=== PATIENT | female | born 1985 | race Caucasian/White ===

== ENCOUNTER 2016-12-26 16:26 | Emergency (ER) | payer OTHER ==
--- NOTE | ~2016-12-26 | CR72 ---
[facility] A Service of [facility] RADIOLOGY TEXT RESULTS PATIENT: DANUTA JEAN LOCATION: [facility] : 85 UNIT #: [id number] AGE: [address]: Cameron Lala MD SEX: F ORDER DR: [id number] [facility] [address] [place], [place] [address] [id number] E MR#: [id number] Acc #: [id number] NAME: DANUTA JEAN : 1985 SEX: F STUDY DATE/TIME: 12/26/2016 16:46 UNIT: [facility] ROOM: STUDY DESCRIPTION: CR Chest Single View Portable Attending Physician: Cameron Lala M.D. Ordering Physician: Cameron Lala M.D. Primary Care Physician: Ally Shah M.D. MEDICAL IMAGING REPORT This report is preliminary unless electronic signature is present EXAM Portable chest HISTORY 31-year-old female, shortness of air, palpitations x1 week. FINDINGS AP portable view of the chest demonstrates mild elevation of the right hemidiaphragm. There is also mild lateralization of the dome of the diaphragm, could represent a small subpulmonic effusion. Both lungs are clear. Heart and mediastinum unremarkable. Osseous structures appear normal. Dictated by... Declan Wells M.D. THIS IS AN ELECTRONICALLY VERIFIED REPORT Declan Wells M.D. at 12/27/2016 1:06 PM MAGNUS/miller TD: 12/26/2016 19:56 JOB #: [id number] MEDICAL IMAGING REPORT Page 1 of 1 COPY
--- NOTE | ~2016-12-26 | EKG ---
PATIENT: DANUTA JEAN UNIT #: [id number] Ventricular Rate: 86 BPM Atrial Rate: 86 BPM P-R Interval: 176 ms QRS Duration: 88 ms Q-T Interval: 346 ms QTC Calculation(Bezet): 414 ms P [place]: 53 degrees Calculated R [place]: 80 degrees Calculated T [place]: 54 degrees Diagnosis Line: Normal sinus rhythm Diagnosis Line: Normal ECG Diagnosis Line: No previous ECGs available Diagnosis Line: Confirmed by OSMANY PULIDO MD ([id number]) on Diagnosis Line: 12/27/2016 7:16:00 AM INTERPRETING MD: [email or web address]
[2016-12-26 16:07] LABS: BASOPHIL# 0.1 X10e3 (0-0.3); BASOPHIL% 0.5 % (0-2.5); EOSINOPHIL# 0.1 X10e3 (0-0.7); EOSINOPHIL% 0.7 % (0.0-7.0); HEMATOCRIT 46.5 % (35.0-45.0); HEMOGLOBIN 15.3 gm/dL (12.0-16.0); LYMPHOCYTE# 5.4 X10e3 (1.0-3.5); MEAN CELL VOLUME 85.6 FL (83-96); MEAN CORPUSCULAR HEMOGLOBIN 28.2 PG (28-34); MEAN PLATELET VOLUME 8.1 FL (6.5-11.5); MONOCYTE# 0.9 X10e3 (0-1.0); MONOCYTE% 6.9 % (3.0-12.0); NEUTROPHIL# 6.2 X10e3 (1.5-7.1); NEUTROPHIL% 48.9 % (40-75); PLATELET COUNT 294 X10e3 (140-420); RED BLOOD COUNT 5.43 X10e (3.90-5.30); WHITE BLOOD COUNT 12.7 X10e3 (4.0-10.5)
[2016-12-26 16:09] LABS: POC - CKMB <1.0 ng/mL (0.0-7.9); POC - TROPONIN <0.05 ng/mL (<=0.05)
[2016-12-26 16:09] LABS: DIFF IND NO
[2016-12-26 16:19] LABS: PROTHROMBIN TIME (PATIENT) 10.8 SECONDS (9.6-11.5)
[~2016-12-26 16:26] MED LIST: BACTRIM DS TABL1 TA1 PO; BENTYL20 MG PO; BIRTH CONTROL PILL PO; CIPRO PO; FIORINAL 50-321 EACH PO; FLEXERIL10 MG PO; IBUPROFEN800 MG PO; KEFLEX PO; NO MEDICATIONS; OTC PAIN MEDS; PANTOPRAZOLE SO40 MG PO; PHENERGAN DM1 ML PO; TOPAMAX25 MG PO; VITAMIN B12 PO; ZITHROMAX1 G/PKT PO; ZOFRAN PO; ZYRTEC-D T1 TAB.SR1 PO
[2016-12-26 16:33] LABS: ALBUMIN SERUM 4.6 g/dL (3.5-5.0); BILIRUBIN, DIRECT 0.1 mg/dL (0.0-0.2); BILIRUBIN,INDIRECT 0.4 mg/dL (0.0-0.9); BILIRUBIN,TOTAL 0.5 mg/dL (0.2-2.0); BUN/CREATININE RATIO 21.25; CALCIUM SERUM 9.5 mg/dL (8.4-10.2); CREATININE SERUM 0.8 mg/dL (0.6-1.4); GLOM FILT RATE Estimated 98.3 mL/min (>60); MAGNESIUM 1.9 mg/dL (1.6-3.0); POTASSIUM 3.5 mmol/L (3.5-5.1); PROTEIN TOTAL SERUM 8.1 g/dL (6.0-8.3)
[2016-12-26 17:42] LABS: POC - CKMB <1.0 ng/mL (0.0-7.9); POC - TROPONIN <0.05 ng/mL (<=0.05)
== END 2016-12-26 18:35 | disposition home or self-care (01) ==
LOC: CED 16:26
PROVIDERS: Emergency Medicine
DX: I47.1 Supraventricular tachycardia (principal); R07.89 Other chest pain; F17.200 Nicotine dependence, unspecified, uncomplicated; I25.2 Old myocardial infarction; E11.9 Type 2 diabetes mellitus without complications; F32.9 Major depressive disorder, single episode, unspecified; Z88.0 Allergy status to penicillin; Z91.040 Latex allergy status; Z88.8 Allergy status to other drugs, medicaments and biological substances
CPT/HCPCS: 36415; 71010; 80048; 80076; 82553; 83735; 84443; 84484; 85025; 85610; 85730; 93005; 99284